=== PATIENT | male | born 2000 | race Caucasian/White ===

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

== ENCOUNTER 2022-08-30 20:31 | Emergency (ER) | payer BC, SELFPAY ==
[2022-08-30 20:32] VITALS: BP 132/80; PULSE 79; RESP 16; TEMP 36.2; O2SAT 97
[2022-08-30 20:34] VITALS: BMI 34.3
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
== END 2022-08-30 23:28 | disposition home or self-care (01) ==
PROVIDERS: Emergency Provider Student in an Organized Health Care Education/Training Program; PCP Pediatrics; Visit Provider Student in an Organized Health Care Education/Training Program
DX: S83.241A Other tear of medial meniscus, current injury, right knee, initial encounter (principal); S83.411A Sprain of medial collateral ligament of right knee, initial encounter; V29.99XA Rider (driver) (passenger) of other motorcycle injured in unspecified traffic accident, initial encounter
CPT/HCPCS: 73562; 99284

== ENCOUNTER → 2022-10-24 | Outpatient (CLI) | payer BC, SELFPAY ==
[2022-10-24 15:55] LABS: Absolute Lymphocyte Count 2.15 X10^3/uL (0.83-4.51); Absolute Neutrophil Count 5.3 X10^3/uL (2.0-7.7); Basophil# 0.04 X10^3/uL; Basophil% 0.5 % (0-1); Eosinophil# 0.08 X10^3/uL; Hematocrit 48.8 % (40-54); Hemoglobin 16.1 g/dL (13.0-16.5); Lymphocyte # 2.15 X10^3/ul (0.83-4.51); Lymphocyte % 26.3 % (19-41); Mean Corpuscular Hgb 29.1 pg (27.0-32.0); Mean Corpuscular Volume 88.2 fL (80-94); Mean Platelet Vol. 10.4 fl (6.2-12.0); Monocyte# 0.59 X10^3/uL; Monocyte% 7.2 % (0-10); NRBC Flagged by Analyzer 0 % (0-5); Neutrophil # 5.28 X10^3/uL (2.7-7.7); Neutrophil % 64.6 % (47-70); Platelet Count 375 K/mm3 (150-450); RBC Distribution Width CV 13.1 % (11.6-14.6); RBC Distribution Width SD 42.4 fl (35.1-43.9); Red Blood Count 5.53 M/mm3 (4.6-6.2); White Blood Count 8.2 K/mm3 (4.4-11.0)
[2022-10-24 16:28] LABS: Anion Gap 6 (5-15); BUN 13 mg/dL (7-18); BUN/Creat Ratio 14.7 RATIO (10-20); Calcium,Total 9.8 mg/dL (8.5-10.1); Chloride 106 mmol/L (98-107); Creatinine, Serum 0.88 mg/dL (0.70-1.30); EST Glomerular Filtration Rate 115 mL/min (>60); Est Glom Filt Rate - Afr Amer 140 mL/min (>60); Glucose 101 mg/dL (74-106); Potassium 3.7 mmol/L (3.5-5.1); Sodium Level 139 mmol/L (136-145)
== END | disposition home or self-care (01) ==
LOC: LAB 15:05
PROVIDERS: PCP Pediatrics; Referring Provider Physician Assistant Surgical; Visit Provider Physician Assistant Surgical
DX: Z01.818 Encounter for other preprocedural examination (principal)
CPT/HCPCS: 36415; 80048; 85025

== ENCOUNTER → 2024-06-08 | Outpatient (CLI) | payer BC, SELFPAY ==
--- NOTE | 2024-06-08 15:08 | RAD_ITS ---
EXAM: XR Right 3rd fingers, 2 or More Views CLINICAL INDICATION: TECHNIQUE: Frontal, lateral and oblique views of the 3rd fingers of the right hand. COMPARISON: No relevant prior studies available. FINDINGS: BONES/JOINTS: Unremarkable. No acute fracture. No dislocation. SOFT TISSUES: Soft tissue swelling. No radiopaque foreign body. RAD/Finger(s) Min 2 Views IMPRESSION: No acute fracture. Reading Location: [facility]
== END | disposition home or self-care (01) ==
LOC: MTRAD 15:08
PROVIDERS: PCP Pediatrics; Referring Provider Physician Assistant; Visit Provider Physician Assistant
DX: S69.91XA Unspecified injury of right wrist, hand and finger(s), initial encounter (principal); X58.XXXA Exposure to other specified factors, initial encounter
CPT/HCPCS: 73140